=== PATIENT | male | born 1970 | race Caucasian/White ===

== ENCOUNTER 2021-01-01 18:55 | Emergency (ER) | payer OTHER ==
[2021-01-01] MEDS ORDERED: CORICIDIN HBP355 ML PO (21:26)
== END 2021-01-01 21:59 | disposition home or self-care (01) ==
LOC: ER1 18:55
DX: J40 Bronchitis, not specified as acute or chronic (principal); I82.811 Embolism and thrombosis of superficial veins of right lower extremity; I10 Essential (primary) hypertension; J06.9 Acute upper respiratory infection, unspecified; M41.9 Scoliosis, unspecified; F17.200 Nicotine dependence, unspecified, uncomplicated; Z88.0 Allergy status to penicillin; Z20.822 Contact with and (suspected) exposure to COVID-19
CPT/HCPCS: 0240U; 71045; 99283